=== PATIENT | male | born 1995 | race African-American/Black ===

== ENCOUNTER 2016-03-03 13:22 | Emergency (ER) | payer SELFPAY ==
[2016-03-03] MEDS ORDERED: SODIUM CHLORIDE 0.9% 1,000 ML IV ONE (15:30)
[2016-03-03] MEDS ORDERED: KETOROLAC TROMETH 30 MG/ML 1ML VIAL IV ONE (15:30)
[2016-03-03] MEDS ORDERED: cefTRIAXone 1GM/50ML D5W 50 ML IV ONE (15:30)
[2016-03-03] MEDS ORDERED: methylPREDNISolone SOD SUCC 125 MG/2 ML VL IV ONE (15:30)
[2016-03-03] MEDS ORDERED: CLINDAMYCIN 600MG IV 50 ML IV ONE (15:30)
[2016-03-03 16:11] VITALS: BP 111/59
== END 2016-03-03 16:47 | disposition home or self-care (01) ==
LOC: ER 13:27
DX: J03.90 Acute tonsillitis, unspecified (principal); F17.210 Nicotine dependence, cigarettes, uncomplicated; F12.10 Cannabis abuse, uncomplicated
CPT/HCPCS: 96365; 96367; 96375; 99284; J0696; J1885; J2930; J3490; J7030

== ENCOUNTER 2016-03-12 02:00 | Emergency (ER) | payer MEDICAID ==
[~2016-03-12] VITALS: Ht 180.3 cm; Wt 63.3 kg
[2016-03-12] MEDS ORDERED: IBUPROFEN 600 MG TAB PO ONE (03:45)
[2016-03-12] MEDS ORDERED: CEPHALEXIN 250 MG CAP PO ONE (03:45)
[2016-03-12 03:49] VITALS: BP 132/78
== END 2016-03-12 06:01 | disposition home or self-care (01) ==
LOC: ER 02:05
DX: M79.671 Pain in right foot (principal); T69.022A Immersion foot, left foot, initial encounter; T69.021A Immersion foot, right foot, initial encounter; J02.9 Acute pharyngitis, unspecified; F17.210 Nicotine dependence, cigarettes, uncomplicated; F12.10 Cannabis abuse, uncomplicated; Z59.0 Homelessness; X58.XXXA Exposure to other specified factors, initial encounter; Y93.89 Activity, other specified; Y99.8 Other external cause status; Y92.89 Other specified places as the place of occurrence of the external cause

== ENCOUNTER 2016-03-12 22:26 | Emergency (ER) | payer MEDICAID ==
[~2016-03-12] VITALS: Ht 180.3 cm; Wt 77.1 kg
[2016-03-12 23:13] VITALS: BP 119/74
== END 2016-03-13 07:35 | disposition home or self-care (01) ==
LOC: ER 22:29
DX: M79.674 Pain in right toe(s) (principal); F17.210 Nicotine dependence, cigarettes, uncomplicated; F12.10 Cannabis abuse, uncomplicated; Z59.0 Homelessness

== ENCOUNTER 2016-03-20 20:42 | Emergency (ER) | payer MEDICAID ==
[~2016-03-20] VITALS: Ht 182.9 cm; Wt 64.9 kg
[2016-03-20 21:36] VITALS: BP 121/72
[2016-03-20] MEDS ORDERED: TETANUS-DIPTH-ACEL PERTUSSIS 0.5ML SYRG IM ONE (23:30)
[2016-03-21] MEDS ORDERED: NEOMYCIN-BACITRACIN-POLYM UNITDOSE PKG TOP OINT TOP ONE (00:15)
[2016-03-21] MEDS ORDERED: BACITRACIN-POLYMYXIN B TOPICAL OINT UD TOP ONE (00:16)
== END 2016-03-21 00:12 | disposition home or self-care (01) ==
LOC: ER 20:43
DX: T20.10XA Burn of first degree of head, face, and neck, unspecified site, initial encounter (principal); F17.210 Nicotine dependence, cigarettes, uncomplicated; F12.10 Cannabis abuse, uncomplicated; Z59.0 Homelessness; Z23 Encounter for immunization; X08.8XXA Exposure to other specified smoke, fire and flames, initial encounter; Y93.G2 Activity, grilling and smoking food; Y99.8 Other external cause status; Y92.89 Other specified places as the place of occurrence of the external cause
CPT/HCPCS: 90471; 90715